=== PATIENT | male | born 1985 | race Caucasian/White ===

== ENCOUNTER 2021-01-12 10:01 | Day surgery (SDC) | payer SELFPAY, OTHER ==
[2021-01-12 10:24] VITALS: BP 115/77; PULSE 56; RESP 16; TEMP 36.6; O2SAT 100; BMI 29.1
[2021-01-12] MEDS: Lactated Ringers 1,000 ML 100 ML IV ×2 (10:30→13:54)
[2021-01-12] MEDS: Cefazolin 2 GM in 0.9% Normal Saline 100 ML IV (11:13)
--- NOTE | 2021-01-12 12:58 | OP.PCM_ITS ---
Problems Associated Problem List Diagnoses (1) Bilateral inguinal hernia (BIH): Report of Operation Date of Procedure: 01/12/21 Pre-Operative Diagnosis: Bilateral inguinal hernias Post-Operative Diagnosis: Same Surgery/Procedure Performed:: Robotically assisted laparoscopic bilateral inguinal hernia repair with mesh Surgeon: Dex Murphy sampler and test preparer: None Type of Anesthesia: General Anesthesiologist: Jeremy Sutherland Specimen's removed: none Drains: none Estimated Blood Loss (mL): < 25 cc Description of Procedure: Patient brought into the operating room. Placed in the supine position. Under excellent endotracheal intubation a Marie catheter was placed the abdomen was sterilely prepped and draped in the usual fashion. Local was injected above the umbilicus. Dissection was carried down to the fascia. The fascia grasped with a Tony. Varies needle was placed inside the abdomen. The abdomen was insufflated to 15 torr. A #8 trocar was placed without difficulty. It was flank by 2 #8 trochars both placed under direct visualization. Patient was placed in the headdown position. Robot was brought in and docked appropriately. Prograsp was placed in the left arm #2 scissors were placed in the right arm #1. I scored the peritoneum on the right dissected down to Henry's ligament dissected laterally during this process I did have some bleeding from the inferior epigastric which I was able to control with a single hemolock clip. I dissected further laterally identifying the Henry's ligament cord and vessel structures and then further laterally once this was completely dissected free I then went to the left side. Similar fashion I scored the peritoneum. I dissected down to Henry's ligament then dissected laterally identifying the cord and vessel structures and dissecting further laterally. 2 pieces of protack mesh were placed into the wound. They laid completely flat I had excellent coverage. I then reperitonealized the area with 3 OV lock covering the mesh completely. Trochars were removed under direct visualization. Skin incisions were closed with the particular stitches of 4-0 Monocryl. Steri-Strips were applied sterile dressings were applied and the patient tolerated the procedure well. Grafts/Implants Used: 2 pieces of 10 x 13 progrip mesh Admit VTE Documentation VTE Present on Admission: No VTE Mechan Device Prophylaxis: SCD's VTE Pharm Prophylaxis ordered?: No Reason prophylaxis not ordered:: Treatment Not Indicated
[2021-01-12] MEDS: Bupivacaine Mpf 0.5% 30 ML VIAL (13:00)
--- NOTE | 2021-01-12 13:03 | DCINST_ITS ---
Discharge Instructions Procedure Hernia Diet Discharge Diet: Light diet - advance as tolerated Activity Discharge Activity: Return to Normal Activity, May Drive (when you are no longer taking narcotic pain medications.) and May Shower (with the bandage in place 1-2 days after surgery.) Lifting Restrictions: 20 pounds for 8 weeks. Additional Activity Instructions:: Climbing stairs is fine, walking is e ncouraged. Sitting in bed may be uncomfortable. Sitting up using your lateral muscles (sitting up sideways) is usually more comfortable. Do not drive, work heavy equipment of sign legal documents for 24 hours. If your hernia repair was an ingunial repair, you may have scrotal swelling, an ice pack and/or athletic support can provide more comfort. Pain medications may cause nausea, you should typically eat light foods as you take your pain medications. Pain medications may also cause constipation. If you have difficulty with this, discuss with your doctor. Dressing / Incision Call your doctor if your incision/area has: Continuous Slow Oozing, Sudden Increased Bleeding, Increased Pain/ Swelling, Increased Redness and Foul Smelling Discharge Call your doctor if you observe: Fever of 101 or Higher Suture Line Care: Avoid Pulling/Pushing and Avoid Pinching/Bending Additional Dressing/Incision Instructions:: Leave the operative bandage on for 2-3 days. When you remove the bandage, leave the steri-strips on place until your follow up appointment or they fall off. Follow Up Care Please Follow Up With: Supriya Vasquez PA-C When: Call office to schedule an appointment to be seen in 7 days. Test Results: Test results from this visit will be discussed in further detail at your follow-up appointment, if applicable. Discharge Plan Admission Attending Provider: Dex Murphy Primary Care Provider: Rico Bourgeois Discharge Orders/Prescriptions Prescriptions: New oxycodone-acetaminophen [Percocet] 5-325 mg tablet 1 tab PO Q4H PRN (Reason: pain) 5 Days Qty: 20 RF: 0 Referrals / Follow Up: Rico Bourgeois MD [Primary Care Provider] -
[2021-01-12 13:14] VITALS: BP 115/77; BP 125/87; PULSE 62; RESP 18; TEMP 36.6; O2SAT 94
[2021-01-12 13:30] VITALS: BP 115/77; BP 129/87; PULSE 59; RESP 18; O2SAT 94
[2021-01-12 13:45] VITALS: BP 115/77; BP 131/80; PULSE 58; RESP 18; O2SAT 94
[2021-01-12 13:53] VITALS: BP 115/77; BP 134/85; PULSE 56; RESP 18; TEMP 36.8; O2SAT 98
[2021-01-12] MEDS: oxyCODONE 5 MG Tablet PO (14:25)
[2021-01-12] MEDS: Acetaminophen 325 MG Tablet PO (14:25)
[2021-01-12 14:45] VITALS: BP 115/77; BP 130/78; PULSE 78; RESP 16; TEMP 37.1; O2SAT 99
== END 2021-01-12 14:56 ==
LOC: SDC 10:03 → AC 10:03
PROVIDERS: PCP Family Medicine; Referring Provider Surgery; Visit Provider Surgery
PROC: (CPT 49650; principal; 2021-01-12 11:10)
DX: K40.20 Bilateral inguinal hernia, without obstruction or gangrene, not specified as recurrent (principal); Z20.822 Contact with and (suspected) exposure to COVID-19
CPT/HCPCS: 00840; 49650; 87426; C9803; J7120; J2405